=== PATIENT | female | born 1990 | race Caucasian/White ===

== ENCOUNTER 2019-01-06 23:18 | Emergency (ER) | payer OTHER ==
[~2019-01-06] VITALS: Ht 162.6 cm; Wt 113.9 kg
[2019-01-06 23:25] VITALS: Ht 162.6 cm; Wt 113.9 kg
[2019-01-07 01:09] LABS: BASOPHIL % 0.5 % (0-2); PLATELET COUNT 300 x10^3mcL (130-400)
[2019-01-07 01:11] LABS: UA SPECIFIC GRAVITY 1.025 (1.005-1.035); microscopic required? YES; urine erythrocyte 3+ (NEGATIVE)
[2019-01-07 01:46] LABS: AMPHETAMINE QUAL UR NONE DETECTED (See below)
[2019-01-07 01:52] LABS: CALCIUM 9.3 mg/dL (8.5-10.1); CARBON DIOXIDE 24.6 mmol/L (21-32); CHLORIDE SERUM 104 mmol/L (98-107); CREATININE SERUM 0.7 mg/dL (0.6-1.0); GFR1 > 60 mL/min; GLUCOSE SERUM 108 mg/dL (74-106); POTASSIUM SERUM 4.2 mmol/L (3.5-5.1); SODIUM SERUM 141 mmol/L (136-145)
[2019-01-07 02:05] LABS: ALBUMIN 3.7 g/dL (3.4-5.0); ALKALINE PHOSPHATASE 70 U/L (46-116); ALT/SGPT 31 U/L (14-59); AST/SGOT 10 U/L (15-37); BILIRUBIN TOTAL 0.66 mg/dL (0.20-1.00); CHOLESTEROL 161 mg/dL (<200); LIPASE 95 IU/L (73-393); TOTAL PROTEIN, SERUM 7.4 g/dL (6.4-8.2)
[2019-01-07 02:07] LABS: HDL CHOLESTEROL 33 mg/dL (40-60)
[2019-01-07 02:39] VITALS: BP 110/73
== END 2019-01-07 02:39 | disposition home or self-care (01) ==
LOC: EDBD 23:18 → ED 23:18
PROVIDERS: Emergency Medicine
DX: R07.89 Other chest pain (principal); N39.0 Urinary tract infection, site not specified; R20.2 Paresthesia of skin; R51 Headache; R11.0 Nausea; R10.11 Right upper quadrant pain; R10.13 Epigastric pain; K76.0 Fatty (change of) liver, not elsewhere classified; Z98.51 Tubal ligation status; Z98.890 Other specified postprocedural states
CPT/HCPCS: 36415; 83880; Q0092

== ENCOUNTER 2019-08-08 23:42 | Emergency (ER) | payer OTHER ==
[~2019-08-08] VITALS: Ht 160 cm; Wt 119.7 kg
[2019-08-09 03:50] VITALS: BP 118/86
== END 2019-08-09 03:50 | disposition left against medical advice (07) ==
LOC: ED 23:42
DX: Z53.21 Procedure and treatment not carried out due to patient leaving prior to being seen by health care provider (principal)